=== PATIENT | female | born 1980 | race American Indian/Alaskan Native ===

== ENCOUNTER 2017-08-02 02:29 | Emergency (ER) | payer SELFPAY ==
[2017-08-02 02:40] VITALS: BP 98/79
[2017-08-02] MEDS ORDERED: TYLENOL PO ONE (02:40)
== END 2017-08-02 03:05 | disposition left against medical advice (07) ==
LOC: ED 02:29
DX: R56.9 Unspecified convulsions (principal); Z53.21 Procedure and treatment not carried out due to patient leaving prior to being seen by health care provider